=== PATIENT | female | born 1935 | race Caucasian/White ===

== ENCOUNTER 2019-01-04 16:43 | Emergency (ER) | payer MEDICARE ==
[~2019-01-04] VITALS: Ht 157.5 cm; Wt 111.1 kg
[2019-01-04 17:12] VITALS: BP 148/80
--- NOTE | 2019-01-04 17:13 | NUR ---
ARRIVAL PATIENT ARRIVED TO [facility] VIA W/C WITH FAMILY, C/O OF RIGHT HIP PAIN THAT STARTED A FEW DAYS AGO, HAS HAD THE RIGHT HIP REPLACED IN THE PAST, DENIES ANY INJURY. PATIENT IS WORSE WITH AMBULATORY, IS TRAVELING FROM [place] AND STOPPED IN THE ED FOR FURTHER EVAL BY [facility].
[2019-01-04] MEDS ORDERED: NUBAIN IM STA (17:20)
[2019-01-04] MEDS ORDERED: ZOFRAN ODT SL STA (17:21)
[2019-01-04] MEDS ORDERED: NUBAIN ONE (17:27)
[2019-01-04] MEDS ORDERED: ZOFRAN ODT ONE (17:27)
--- NOTE | 2019-01-04 17:27 | ER.PDOC ---
General Chief Complaint: Extremities Stated Complaint: LOWER BACK PAIN Time seen by MD: 17:33 Source: patient Exam Limitations: no limitations History of Present Illness Timing/Duration: week Severity/Quality: moderate Radiation: upper legs, other (INGUINAL AREA L) Method of Injury: unknown Modifying Factors: improves with immobilization, improves with movement, improves with pain medication, improves with rest Associated Symptoms: lower back pain Prior symptoms/Treatment: Similar symptoms previous Allergies: Coded Allergies: Sulfa (Sulfonamide Antibiotics) (Verified Allergy, Unknown, 01/04/19) cyclobenzaprine (Verified Allergy, Unknown, 01/04/19) droperidol (Verified Allergy, Unknown, 01/04/19) misoprostol (Verified Allergy, Unknown, 01/04/19) Home Meds No Active Prescriptions or Reported Meds Past Medical History Medical History: coronary artery disease, cardiac problems, COPD, GERD, hypertension, thyroid disease Surgical History: cholecystectomy, hip LMP (females 10-50): postmenopause Social History Smoking: non-smoker Alcohol Use: none Drug Use: none Reviewed Nursing Reviewed: Vital Signs, Abn. Noted Review of Systems All Other Systems: Reviewed and Negative Physical Exam General Appearance: No Apparent Distress, WD/WN HEENT: PERRL/EOMI, Normal ENT Inspection, TMs Normal, Pharynx Normal Neck: Non-Tender, Normal Alignment Cardiovascular/Respiratory: Regular Rate, Rhythm, No M/R/G, Normal Peripheral Pulses, No JVD, Normal Breath Sounds, No Respiratory Distress Gastrointestinal: Normal Bowel Sounds, No Organomegaly, No Pulsatile Mass, Non Tender, Soft Back: Other (L SI AREA TENDERNESS) Extremities: Other (SLR +VE AT 40 DEG L) Neuro/Psych: Alert, flash designer nml/symmetrical, mood/effect nml, No Motor/Sensory Deficits, Relexes nml Skin: Normal Color, Warm/Dry Results/Orders Results/Orders Orders - LUISITO MEHTA MD Nalbuphine Hcl (Nubain) (01/04/19 17:20) Ondansetron (Zofran Odt) (01/04/19 17:21) Vital Signs Date Time Temp Pulse Resp B/P (MAP) Pulse Ox O2 Delivery O2 Flow Rate FiO2 01/04/19 17:12 98.3 69 18 01/04/19 17:12 98.3 69 18 148/80 (102) 95 Room Air 01/04/19 17:09 69 18 95 Room Air Course Vitals & review Data Vital Sign - Last 24 Hours 01/04/19 01/04/19 01/04/19 17:09 17:12 17:12 Temp 98.3 98.3 Pulse 69 69 69 Resp 18 18 18 B/P (MAP) 148/80 (102) Pulse Ox 95 95 O2 Delivery Room Air Room Air Sepsis Infection Criteria Pres: None O2 Sat by Pulse Oximetry: 95 Departure Time of Disposition: 18:00 Disposition: 01 HOME, SELF-CARE Impression: Primary Impression: Lumbar radiculopathy Condition: Improved Referrals: PCP,UNKNOWN (PCP) PRIMARY CARE PROVIDER Scripts No Active Prescriptions or Reported Meds Duration or Time Spent with Pa: 20 MIN LUISITO MEHTA MD Jan 04, 2019 17:26
[2019-01-04 17:48] VITALS: BP 163/76
[2019-01-04 18:07] VITALS: BP 163/76
== END 2019-01-04 18:08 | disposition home or self-care (01) ==
LOC: ER 16:43
DX: M54.16 Radiculopathy, lumbar region (principal); I25.10 Atherosclerotic heart disease of native coronary artery without angina pectoris; I10 Essential (primary) hypertension; E07.9 Disorder of thyroid, unspecified; J44.9 Chronic obstructive pulmonary disease, unspecified; K21.9 Gastro-esophageal reflux disease without esophagitis; Z88.2 Allergy status to sulfonamides; Z90.49 Acquired absence of other specified parts of digestive tract; Z98.890 Other specified postprocedural states; Z79.899 Other long term (current) drug therapy
CPT/HCPCS: 96372; 99284; J2300; Q0162